=== PATIENT | female | born 2000 | race Caucasian/White ===

== ENCOUNTER 2024-01-14 15:24 | Outpatient (AMB) | payer OTHER, SELFPAY ==
--- NOTE | 2024-01-14 15:33 | MHC.PC.OV ---
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 Allergies No Known Allergies Allergy (Verified 01/14/24 15:33) Medication List - Last Reconciled 01/14/24 by Melyssa Noriega PA-C bupropion HCl XL 300 mg PO DAILY fluoxetine 20 mg PO DAILY hydroxychloroquine 200 mg PO BID Tobacco use date assessed: 01/14/24 Dental Screening Dental Screen Date: 01/14/24 Did you have a dental visit in the last 12 months?: Yes Did you have a dental problem in the last 6 months where you did not have access to dental care?: No Was dental information given to patient?: Patient 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 She was seen by myself last year at [facility] on 02/21/23. She has a hx of anxiety, depression and now lupus Psych: She is on wellbutrin and prozac and doing well. No SI/HI. Rheum: dx with lupus 3 months ago. She went to [facility] rheumatology and is doing well with hydroxychloroquine. sees ophthalmology next week. 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 [facility] Medical History (Updated 01/14/24 @ 15:52 by Jovana Banuelos CMA) Obesity with body mass index (BMI) of 35.0 to 39.9 without comorbidity Hypertriglyceridemia Anxiety and depression Family History (Updated 01/14/24 @ 15:53 by Jovana Banuelos CMA) Mother Ephraim's disease Father Diabetes Heart attack Maternal Grandfather Diabetes Paternal Grandmother Diabetes Paternal Grandmother Diabetes Social History Housing: House Patient Tobacco Use Status: Never used Tobacco e-Cigarette/Vaping Use: Never Used Second Hand Smoke Exposure: No service: No Current occupational status: unemployed Cognitive needs: No Hearing needs: No Vision needs: No Questionnaire PHQ-9 Over the last 2 weeks, how often have you been bothered by any of the following problems? 1. Little interest or pleasure in doing things: more than half the days 2. Feeling down, depressed, or hopeless: more than half the days 3. Trouble falling or staying asleep, or sleeping too much: more than half the days 4. Feeling tired or having little energy: more than half the days 5. Poor appetite or overeating: several days 6. Feeling bad about yourself - or that you are a failure or have let yourself or your family down: nearly every day 7. Trouble concentrating on things, such as reading the newspaper or watching television: nearly every day 8. Moving or speaking so slowly that other people could have noticed. Or the opposite - being so fidgety or restless that you have been moving around a lot more than usual: more than half the days 9. Thoughts that you would be better off or of hurting yourself in some way: several days Total score: 18 Depression Screening Interpretation: Positive Depression Screening Done: Yes 20677 - PHQ-9 Billing: Yes Source: Developed by Drs. Gulshan Shine, Malathi Hurd, Alex Ko and colleagues, with an educational gregg from [employer]. Thrive Questionnaire Date Thrive assessed: 01/14/24 I am a: Patient What is your living situation today?: I have a steady place to live Within the past 12 months, did the food you bought not last and you didn't have the money to get more?: Sometimes True Within the past 12 months, did you worry whether your food would run out before you got money to buy more?: Sometimes True Do you have trouble paying for medicines?: No Do you have trouble getting transportation to medical appointments?: No Do you have trouble paying your heating and electricity bill?: Yes Do you have trouble taking care of your child, family member or friend?: No Do you have trouble with day-to-day activities such as bathing, preparing meals, shopping, managing finances, etc.?: No Are you currently unemployed and looking for a job?: No Are you interested in more education?: No Please select the resources that you would like help with: None Currently or been in a relationship where the following occur: No concerns reported THRIVE Score: 3 AUDIT C Alcohol Use Questionnaire (AUDIT-C) 1. How often do you have a drink containing alcohol?: Monthly or less 2. How many drinks containing alcohol do you have on a typical day when you are drinking?: 3 or 4 3. How often do you have six or more drinks on one occasion?: Never Total Score: 2 MARIA E-7 AMB Questionnaire MARIA E-7 Date MARIA E - 7 assessed: 01/14/24 Feeling nervous, anxious, or on edge: 2 = More than half the days Not being able to stop or control worryin = More than half the days Worrying too much about different things: 2 = More than half the days Trouble relaxin = More than half the days Being so restless that it is hard to sit still: 1 = Several days Becoming easily annoyed or irritable: 1 = Several days Feeling afraid as if something awful might happen: 1 = Several days Total MARIA E-7 score (0-4 normal; 5-9 mild; 10-14 moderate; 15-21 severe): 11 Source: Developed by Drs. Gulshan Shine, Malathi Hurd, Alex Ko and colleagues, with an educational gregg from [employer]. MARIA E-7 Assessment Billing MARIA E-7 Assessment Tool: MARIA E-7 Assessment 45915 Physical exam (Primary Care) Vital Signs: Last Vital Signs Temp 98.7 F 01/14/24 15:35 Pulse 96 01/14/24 15:35 Resp 16 01/14/24 15:35 BP 102/70 01/14/24 15:35 Pulse Ox 97 01/14/24 15:35 Oxygen Delivery Method Room Air 01/14/24 15:35 BMI result Body Mass Index 41.1 Tobacco/Smoking Status: Tobacco use Status Tobacco use date assessed 01/14/24 01/14/24 15:39 Patient Tobacco Use Status Never used Tobacco 01/14/24 15:39 e-Cigarette/Vaping Use Never Used 01/14/24 15:39 Depression Screening Interpretation: Positive Currently or been in a relationship where the following occur: No concerns reported Const Orientation/consciousness: patient oriented x3 HENMT Ears: hearing grossly normal bilaterally Neck Thyroid: Thyroid normal Lymphatic: no lymphadenopathy noted Resp Auscultation: clear to auscultation bilaterally Cardio Rate: regular rate Rhythm: regular rhythm Heart sounds: S1 normal heart sound present and S2 normal heart sound present GI Inspection: Yes normal to inspection Palpation (GI): Soft to palpation and Other GI palpation findings present (nontender, no cva tenderness) Auscultation: normoactive bowel sounds Rectal Exam - Female: deferred Skin General skin exam: no rashes or lesions noted Neuro General: patient oriented x3, gait normal and no focal motor deficits Assessment and Plan Assessment & Plan (1) Lupus: Code(s): M32.9 - Systemic lupus erythematosus, unspecified Plan: Continue follow up with Rheumatology (2) Anxiety with depression: Code(s): F41.8 - Other specified anxiety disorders Plan: Refilled medications today (3) Insulin resistance: Code(s): E88.819 - Insulin resistance, unspecified Plan: A1c ordered. We will follow up pending test results. Advised to follow up for a physical exam. Congratulated her on her weight loss. Orders: Orders Comprehensive [place]. Panel Fast Today E88.819 - Insulin resistance, unspecified, F41.8 - Other specified anxiety disorders, M32.9 - Systemic lupus erythematosus, unspecified Lipid Panel Today E88.819 - Insulin resistance, unspecified, F41.8 - Other specified anxiety disorders, M32.9 - Systemic lupus erythematosus, unspecified TSH reflex Free T4 Today E88.819 - Insulin resistance, unspecified, F41.8 - Other specified anxiety disorders, M32.9 - Systemic lupus erythematosus, unspecified Hemoglobin A1c Today E88.819 - Insulin resistance, unspecified, F41.8 - Other specified anxiety disorders, M32.9 - Systemic lupus erythematosus, unspecified 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
[2024-01-14 15:35] VITALS: BP 102/70; PULSE 96; RESP 16; TEMP 37.1; O2SAT 97; BMI 41.1
== END 2024-01-14 15:58 | disposition home or self-care (01) ==
PROVIDERS: PCP Physician Assistant; Visit Provider Physician Assistant
DX: M32.9 Systemic lupus erythematosus, unspecified (principal); F41.8 Other specified anxiety disorders; E88.819 Insulin resistance, unspecified
CPT/HCPCS: 99214

== ENCOUNTER 2024-10-27 12:59 | Outpatient (AMB) | payer OTHER, SELFPAY ==
--- NOTE | 2024-10-27 13:05 | A.OFFPC_ITS ---
Vital Signs 10/27/24 13:07 Height 5 ft 0.83 in Weight 228 lb 6 oz BMI 43.4 BP 110/72 Blood Pressure Location Rt brachial Position Sitting Respiration 14 Pulse 101 H Pulse Source Pulse Oximeter Temp 98.9 F Temp Source Oral Pulse Oximetry (%) 98 Oxygen Delivery Method Room Air Intake Visit Reasons: ear infection Intake Note: Right ear pain and right sided jaw pain. Symptoms started on Thursday. Also experiencing headaches. 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 Allergies No Known Allergies Allergy (Verified 10/27/24 13:06) Medication List - Last Reconciled 10/27/24 by Melyssa Noriega PA-C bupropion HCl XL 300 mg PO DAILY fluoxetine 20 mg PO DAILY hydroxychloroquine 200 mg PO BID Tobacco use date assessed: 10/27/24 Dental Screening Dental Screen Date: 10/27/24 Did you have a dental visit in the last 12 months?: Yes Did you have a dental problem in the last 6 months where you did not have access to dental care?: No Was dental information given to patient?: Patient has dentist HPI ear infection HPI Details Pt is a 24-year-old female who presents today for an acute problem visit. She has a hx of anxiety, depression and lupus. HEENT: She states she has had a lot of sinus congestion x 2 months due to season change. She states a few days ago she started getting right right ear pain. She does have a slight cough with this. She thinks this is related to pnd. She has been taking flonase. She did a teledoc and they gave her singulair. She denies any fever or chills. Psych: She is on wellbutrin and prozac and doing well. No SI/HI. Rheum: She goes to [facility] rheumatology and is doing well with hydroxychloroquine. sees ophthalmology next week. 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 Medical History (Updated 10/27/24 @ 13:22 by Melyssa Noriega PA-C) Obesity with body mass index (BMI) of 35.0 to 39.9 without comorbidity Hypertriglyceridemia Anxiety and depression Family History (Updated 01/14/24 @ 15:53 by Jovana Banuelos CMA) Mother Ephraim's disease Father Diabetes Heart attack Maternal Grandfather Diabetes Paternal Grandmother Diabetes Paternal Grandmother Diabetes Social History Housing: House Patient Tobacco Use Status: Never used Tobacco e-Cigarette/Vaping Use: Never Used Second Hand Smoke Exposure: No service: No Current occupational status: unemployed Cognitive needs: No Hearing needs: No Vision needs: No Questionnaire PHQ-9 Over the last 2 weeks, how often have you been bothered by any of the following problems? 1. Little interest or pleasure in doing things: several days 2. Feeling down, depressed, or hopeless: several days 3. Trouble falling or staying asleep, or sleeping too much: several days 4. Feeling tired or having little energy: several days 5. Poor appetite or overeating: several days 6. Feeling bad about yourself - or that you are a failure or have let yourself or your family down: several days 7. Trouble concentrating on things, such as reading the newspaper or watching television: several days 8. Moving or speaking so slowly that other people could have noticed. Or the opposite - being so fidgety or restless that you have been moving around a lot more than usual: several days 9. Thoughts that you would be better off or of hurting yourself in some way: not at all Total score: 8 Depression Screening Interpretation: Positive Depression Screening Follow-up: Existing condition, In treatment and Community Mental Health Worker F/U Depression Screening Done: Yes 88927 - PHQ-9 Billing: Yes Source: Developed by Drs. Gulshan Shine, Malathi Hurd, Alex Ko and colleagues, with an educational gregg from [employer]. Thrive Questionnaire Date Thrive assessed: 01/14/24 I am a: Patient What is your living situation today?: I have a steady place to live Within the past 12 months, did the food you bought not last and you didn't have the money to get more?: Sometimes True Within the past 12 months, did you worry whether your food would run out before you got money to buy more?: Sometimes True Do you have trouble paying for medicines?: I choose not to answer this question Do you have trouble getting transportation to medical appointments?: No Do you have trouble paying your heating and electricity bill?: I choose not to answer this question Do you have trouble taking care of your child, family member or friend?: No Do you have trouble with day-to-day activities such as bathing, preparing meals, shopping, managing finances, etc.?: No Are you currently unemployed and looking for a job?: No Are you interested in more education?: No Please select the resources that you would like help with: None Currently or been in a relationship where the following occur: No concerns reported THRIVE Score: 2 AUDIT C Alcohol Use Questionnaire (AUDIT-C) 1. How often do you have a drink containing alcohol?: 2-4 times a month 2. How many drinks containing alcohol do you have on a typical day when you are drinking?: 1 or 2 3. How often do you have six or more drinks on one occasion?: Less than monthly Total Score: 3 MARIA E-7 AMB Questionnaire MARIA E-7 Date MARIA E - 7 assessed: 10/27/24 Feeling nervous, anxious, or on edge: 1 = Several days Not being able to stop or control worryin = Several days Worrying too much about different things: 1 = Several days Trouble relaxin = Several days Being so restless that it is hard to sit still: 1 = Several days Becoming easily annoyed or irritable: 1 = Several days Feeling afraid as if something awful might happen: 1 = Several days Total MARIA E-7 score (0-4 normal; 5-9 mild; 10-14 moderate; 15-21 severe): 7 Source: Developed by Drs. Gulshan Shine, Malathi Hurd, Alex Ko and colleagues, with an educational gregg from [employer]. MARIA E-7 Assessment Billing MARIA E-7 Assessment Tool: MARIA E-7 Assessment 44785 Physical exam (Primary Care) Vital Signs: Last Vital Signs Temp 98.9 F 10/27/24 13:07 Pulse 101 H 10/27/24 13:07 Resp 14 10/27/24 13:07 BP 110/72 10/27/24 13:07 Pulse Ox 98 10/27/24 13:07 Oxygen Delivery Method Room Air 10/27/24 13:07 BMI result Body Mass Index 43.4 Tobacco/Smoking Status: Tobacco use Status Tobacco use date assessed 10/27/24 10/27/24 13:11 Patient Tobacco Use Status Never used Tobacco 10/27/24 13:11 e-Cigarette/Vaping Use Never Used 10/27/24 13:11 PHQ-9: PHQ-9 Score PHQ-9: Total score 8 10/27/24 13:11 Depression Screening Interpretation: Positive Depression Screening Follow-up: Existing condition, In treatment and Community Mental Health Worker F/U Thrive Assessment: Date of Thrive Assessment Date Thrive assessed 01/14/24 10/27/24 13:11 Currently or been in a relationship where the following occur: No concerns reported Const Orientation/consciousness: patient oriented x3 HENMT Other: TMs dome shaped. AIrfluid level on the right noted with erythematous TM. hearing intact. Nasal mucosa erythematous and edematous. Ears: hearing grossly normal bilaterally Face and sinus: Yes sinuses nontender Neck Thyroid: Thyroid normal Lymphatic: no lymphadenopathy noted Resp Auscultation: clear to auscultation bilaterally Cardio Rate: regular rate Rhythm: regular rhythm Heart sounds: S1 normal heart sound present and S2 normal heart sound present GI Inspection: Yes normal to inspection Palpation (GI): Soft to palpation and Other GI palpation findings present (nontender, no cva tenderness) Auscultation: normoactive bowel sounds Rectal Exam - Female: deferred Skin General skin exam: no rashes or lesions noted Neuro General: patient oriented x3, gait normal and no focal motor deficits Coding Level of Care Code Est Pt Level 4 (90461) Complex EM visit Add On G2211 Diagnoses Anxiety with depression F41.8 Seasonal allergic rhinitis J30.2 Otitis media of right ear H66.91 Additional Codes MARIA E-7 Assessment Billing - MARIA E-7 Assessment Tool: MARIA E-7 Assessment 71166 ([id number]) PHQ-9 - 85786 - PHQ-9 Billing: Yes ([id number]) Assessment & Plan Assessment & Plan (1) Anxiety with depression: Code(s): F41.8 - Other specified anxiety disorders Category: Medical Plan: stable with prozac and wellbutrin states well controlled (2) Seasonal allergic rhinitis: Code(s): J30.2 - Other seasonal allergic rhinitis Category: Medical Plan: will continue flonase consistently and start xyzal (3) Otitis media of right ear: Code(s): H66.91 - Otitis media, unspecified, right ear Plan: start flonase and augmentin. discussed risks and benefits and adverse effects. Medications: New amoxicillin-pot clavulanate 875-125 mg 1 tab PO Q12H 20 tabs 0RF levocetirizine (Xyzal) 5 mg PO QPM 30 tabs 0RF
[2024-10-27 13:07] VITALS: BP 110/72; PULSE 101; RESP 14; TEMP 37.2; O2SAT 98; BMI 43.4
== END 2024-10-27 15:33 | disposition home or self-care (01) ==
LOC: HO.HMCFM 13:00
PROVIDERS: PCP Physician Assistant; Visit Provider Physician Assistant
DX: F41.8 Other specified anxiety disorders (principal); J30.2 Other seasonal allergic rhinitis; H66.91 Otitis media, unspecified, right ear

== ENCOUNTER → 2024-10-27 12:59 | Outpatient (BNVA) | payer OTHER, SELFPAY | PROVIDERS: PCP Physician Assistant; Visit Provider Physician Assistant | DX: F41.8 Other specified anxiety disorders (principal); J30.2 Other seasonal allergic rhinitis; H66.91 Otitis media, unspecified, right ear | CPT/HCPCS: 96127 ==